=== PATIENT | female | born 1985 | race Caucasian/White ===

== ENCOUNTER 2024-09-13 15:50 | Observation (INO) | payer OTHER ==
[2024-09-13 16:07] VITALS: BMI 32.8
[2024-09-13 17:13] LABS: BASO % 0.7 % (0-2.0); EOS % 0.6 % (0-4.5); HEMATOCRIT 25.8 % (32.4-45.2); HEMOGLOBIN 8.6 GM/dL (10.7-15.3); MCH 28.2 pg (25.7-33.7); MCHC 33.3 g/dl (32.0-36.0); MEAN CELL VOLUME 84.8 fl (80-96); MEAN PLT VOLUME 7.6 fl (7.5-11.1); MONO % 7.4 % (3.8-10.2); NEUT % 70.3 % (42.8-82.8); PLATELET COUNT 280 10^3/uL (134-434); RBC 3.04 M/mm3 (3.60-5.2); RDW 13.9 % (11.6-15.6); WHITE BLOOD COUNT 6.5 K/mm3 (4.0-10.0)
[2024-09-13] MEDS ORDERED: ACETAMINOPHEN INJECTION 100 ML ONE (17:39)
[2024-09-13 17:44] LABS: POTASSIUM 3.8 mmol/L (3.5-5.1)
[2024-09-13 17:47] LABS: ALBUMIN 3.2 g/dl (3.4-5.0); BLOOD UREA NITROGEN 12.3 mg/dL (7-18)
[2024-09-13 17:50] LABS: CREATININE 0.6 mg/dL (0.55-1.3)
[2024-09-13 17:51] LABS: BILIRUBIN,TOTAL 0.2 mg/dL (0.2-1)
[2024-09-13 17:52] LABS: TOT PROT 6.5 g/dl (6.4-8.2)
[2024-09-13] MEDS: ACETAMINOPHEN 1000 MG/100 ML BAG IVPB ONE (17:53)
[2024-09-13] MEDS: LACTATED RINGERS SOLUTION 1000 ML INFUS.BAG IV ONE (17:53)
[2024-09-13 18:38] LABS: URINE APPEARANCE Turbid; URINE BILIRUBIN Negative (NEGATIVE); URINE COLOR Amber; URINE GLUCOSE (UA) Trace (NEGATIVE); URINE KETONE Trace (NEGATIVE); URINE LEUK ESTERASE Negative (NEGATIVE); URINE NITRITE Positive (NEGATIVE); URINE PROTEIN 3+ (NEGATIVE); URINE UROBILINOGEN 0.2 mg/dL (0.2-1.0)
[2024-09-13] MEDS ORDERED: CEFTRIAXONE 1 G/50 ML PREMIX 50 ML IVPB ONE (20:57)
[2024-09-13] MEDS: CEFTRIAXONE 1,000 MG in DEXTROSE 5%-WATER - 50 ML IVPB ONE (21:06)
[2024-09-13 21:29] LABS: BASO % 0.7 % (0-2.0); EOS % 0.6 % (0-4.5); HEMATOCRIT 22.3 % (32.4-45.2); HEMOGLOBIN 7.3 GM/dL (10.7-15.3); LYMPH % 27.3 % (8-40); MCH 27.6 pg (25.7-33.7); MCHC 32.8 g/dl (32.0-36.0); MEAN CELL VOLUME 84.2 fl (80-96); MEAN PLT VOLUME 7.8 fl (7.5-11.1); MONO % 6.3 % (3.8-10.2); NEUT % 65.1 % (42.8-82.8); PLATELET COUNT 264 10^3/uL (134-434); RBC 2.65 M/mm3 (3.60-5.2); RDW 14.1 % (11.6-15.6); WHITE BLOOD COUNT 5.6 K/mm3 (4.0-10.0)
[2024-09-13] MEDS ORDERED: CEFAZOLIN 2 GM/D5W 2 GM/50 ML ML IVPB ONE (21:55)
[2024-09-13] MEDS: METHYLERGONOVINE MALEATE 0.2 MG/1 ML AMP IM ONE (22:20)
[2024-09-13] MEDS: CEFAZOLIN SODIUM 2 GM in DEXTROSE 5%-WATER 100 ML IVPB ONE (22:20)
[2024-09-14] MEDS ORDERED: PANTOPRAZOLE 40 MG TABLET PO ONE ×2 (04:49→10:00)
[2024-09-14] MEDS: PANTOPRAZOLE 40 MG TABLET PO ONE (05:29)
[2024-09-14] MEDS ORDERED: ACETAMINOPHEN 325 MG TABLET (FP) ONE (05:32)
[2024-09-14] MEDS: ACETAMINOPHEN 325 MG TABLET (FP) PO PRN (05:40)
[2024-09-14] MEDS: SODIUM CHLORIDE 1,000 ML IV SCH (06:36)
[2024-09-14 06:44] LABS: PH,URINE 5.5 (5.0-8.0); URINE APPEARANCE CLEAR; URINE BILIRUBIN NEGATIVE (NEGATIVE); URINE COLOR YELLOW; URINE GLUCOSE (UA) NEGATIVE (NEGATIVE); URINE KETONE TRACE (NEGATIVE); URINE LEUK ESTERASE N (NEGATIVE); URINE NITRITE NEGATIVE (NEGATIVE); URINE PROTEIN 1+ (NEGATIVE); URINE RBC 943.2 /uL (0-23.9); URINE WBC 21.6 /uL (0-25.8)
[2024-09-14 06:45] LABS: EPI CELLS 34.7 /uL (0-25.1); HYALINE CASTS 1.23 /uL (0-3.1); URINE BACTERIA 15.1 /uL (0-1359)
[2024-09-14 07:13] LABS: HEMOGLOBIN 7.8 GM/dL (10.7-15.3); MCH 28.4 pg (25.7-33.7); MCHC 33.7 g/dl (32.0-36.0); MEAN CELL VOLUME 84.2 fl (80-96); MEAN PLT VOLUME 8.3 fl (7.5-11.1); PLATELET COUNT 231 10^3/uL (134-434); RBC 2.74 M/mm3 (3.60-5.2); RDW 14.2 % (11.6-15.6); WHITE BLOOD COUNT 6.3 K/mm3 (4.0-10.0)
[2024-09-14 07:31] LABS: POTASSIUM 3.6 mmol/L (3.5-5.1)
[2024-09-14 07:33] LABS: CALCIUM 8.2 mg/dL (8.5-10.1)
[2024-09-14 07:34] LABS: ALBUMIN 2.8 g/dl (3.4-5.0); BLOOD UREA NITROGEN 14.2 mg/dL (7-18); MAGNESIUM 1.8 mg/dL (1.8-2.4)
[2024-09-14 07:37] LABS: CREATININE 0.6 mg/dL (0.55-1.3); PHOSPHOROUS 3.9 mg/dL (2.5-4.9)
[2024-09-14 07:39] LABS: TOT PROT 5.4 g/dl (6.4-8.2)
[2024-09-14] MEDS: PANTOPRAZOLE 40 MG TABLET PO SCH (10:03)
[2024-09-14 12:36] LABS: BASO % 0.6 % (0-2.0); EOS % 1.1 % (0-4.5); HEMATOCRIT 22.5 % (32.4-45.2); HEMOGLOBIN 7.5 GM/dL (10.7-15.3); LYMPH % 27.6 % (8-40); MCH 28.2 pg (25.7-33.7); MCHC 33.4 g/dl (32.0-36.0); MEAN CELL VOLUME 84.3 fl (80-96); MONO % 6.5 % (3.8-10.2); NEUT % 64.2 % (42.8-82.8); PLATELET COUNT 225 10^3/uL (134-434); RBC 2.67 M/mm3 (3.60-5.2); RDW 14.2 % (11.6-15.6); WHITE BLOOD COUNT 5.7 K/mm3 (4.0-10.0)
[2024-09-14 13:15] VITALS: BP 99/54; PULSE 81; RESP 20; TEMP 98.5
[2024-09-14] MEDS ORDERED: CEFTRIAXONE 1 G/50 ML PREMIX 50 ML IVPB SCH (18:00)
== END 2024-09-14 14:00 | disposition home or self-care (01) ==
LOC: JER 15:50 → JERBED 22:46
PROVIDERS: ADMIT Internal Medicine; ATTEND Internal Medicine
DX: O03.9 Complete or unspecified spontaneous abortion without complication (principal); D64.9 Anemia, unspecified
CPT/HCPCS: 36415; 36430; 71046-TC-FY; 76817-TC; 80053; 81003; 83735; 84100; 84702; 85025; 85027; 86850; 86900; 86901; 86922; 87086; 88305-TC; 93005; 93010; 99285-25; G0378; J0131; P9038; P9058